=== PATIENT | male | born 1965 | race Caucasian/White ===

== ENCOUNTER 2018-03-30 08:28 | Day surgery (SDC) | payer MEDICARE, MEDICAID ==
[2018-03-30] MEDS ORDERED: Lactated Ringers 1,000 ML IV SCH ×2 (09:15→11:30)
[2018-03-30] MEDS ORDERED: fentaNYL 100 MCG/2 ML SDV ONE (10:02)
[2018-03-30] MEDS ORDERED: Midazolam 1 MG/ML 2 ML SDV ONE (10:02)
[2018-03-30] MEDS ORDERED: Propofol 200 MG/20 ML SDV ONE (10:02)
--- NOTE | 2018-03-31 07:31 | OR ---
DATE OF PROCEDURE: 03/30/2018 PREOPERATIVE DIAGNOSIS: Blood in stool. POSTOPERATIVE DIAGNOSIS: Blood in stool, etiology unknown, poor colonoscopy prep. PROCEDURE: Attempted colonoscopy, unsuccessful, only to about 30 cm secondary to large amount of formed stool. SURGEON: Chet Dominguez MD ANESTHESIA: IV anesthesia with monitored anesthesia care. INDICATION: This 53-year-old white male is referred for a colonoscopy. He has never had a colonoscopic exam. He has a positive FIT test. I counseled him for the procedure, including risks and alternatives, and he gave his informed consent to proceed. PROCEDURE DETAILS: The patient was placed in the left lateral decubitus position. IV anesthesia was administered by the Anesthesia Service. Time-out was held. A rectal exam was performed, which was unremarkable except we encountered a lot of stool. The flexible video Olympus colonoscope was introduced through his anus, up his rectum, out his colon. We had to course along the wall staying away from a great deal of stool. We only got to about 30 cm, when we ran into a wall of stool, which precluded going any further. The scope was then slowly withdrawn, examining the visualized mucosa, which appeared unremarkable. The scope was removed. He tolerated the procedure well. We will see if we can do a couple more days of prep and then repeat the attempt in two days. Chet Dominguez MD /[id number]
== END 2018-03-30 11:35 | disposition home or self-care (01) ==
LOC: JP.SDS 08:28
PROVIDERS: ATTEND Surgery
DX: K92.1 Melena (principal); E11.9 Type 2 diabetes mellitus without complications
CPT/HCPCS: 45330; J2250; J2704; J3010; J7120

== ENCOUNTER 2018-04-01 06:22 | Day surgery (SDC) | payer MEDICARE, MEDICAID ==
[2018-04-01] MEDS: Lactated Ringers 1,000 ML IV SCH (06:44)
[2018-04-01] MEDS ORDERED: Propofol 200 MG/20 ML SDV ONE ×2 (07:19→08:01)
[2018-04-01] MEDS ORDERED: fentaNYL 100 MCG/2 ML SDV ONE (07:19)
[2018-04-01] MEDS ORDERED: Midazolam 1 MG/ML 2 ML SDV ONE (07:20)
--- NOTE | 2018-04-01 09:05 | OR ---
DATE OF PROCEDURE: 04/01/2018 PREOPERATIVE DIAGNOSIS: Positive FIT test. POSTOPERATIVE DIAGNOSIS: Positive FIT test, etiology unknown. PROCEDURE: Colonoscopy to the cecum. SURGEON: Chet Dominguez MD ANESTHESIA: IV anesthesia with monitored anesthesia care. INDICATION: This 53-year-old white male is here for a colonoscopy. We attempted to do a colonoscopy two days ago, but the prep was very poor, and it was impossible to do the procedure. He has been re-prepped. We are doing this because he has a positive FIT test. I counseled him for the procedure including risks and alternatives, and he gave his informed consent to proceed. DESCRIPTION OF PROCEDURE: The patient was placed in the left lateral decubitus position. IV anesthesia was administered by the Anesthesia Service. Time-out was held. A rectal exam was performed, which was unremarkable. The flexible video Olympus colonoscope was introduced through his anus, up his rectum and out his colon, all the way to the cecum. There was a great deal of stool lining the mucosa of the colon. We washed and aspirated much of this free. Once the cecum was reached, the scope was slowly withdrawn, examining the mucosa throughout. No mucosal abnormalities were noted. The scope was retroflexed in the rectum with the distal rectum appearing unremarkable. The scope was straightened and removed. He tolerated the procedure well. Chet Dominguez MD /[id number]
== END 2018-04-01 09:35 | disposition home or self-care (01) ==
LOC: JP.SDS 06:22
PROVIDERS: ATTEND Surgery
DX: R19.5 Other fecal abnormalities (principal); E11.9 Type 2 diabetes mellitus without complications
CPT/HCPCS: 45378; 82962; J2250; J2704; J3010; J7120

== ENCOUNTER 2023-02-06 15:01 | Emergency (ER) | payer MEDICAID, MEDICARE ==
[2023-02-06] MEDS ORDERED: Sodium Chloride 0.9% 1,000 ML IV SCH ×2 (16:00→17:30)
[2023-02-06 16:12] LABS: BASOPHILS ABSOLUTE AUTO 0.04 K/uL (0.00-0.10); BASOPHILS PERCENT AUTO 0.3 % (0.1-1.3); BICARBONATE,ARTERIAL 21.1 mmol/L (22.0-26.0); CARBOXYHEMOGLOBIN 2.3 % (0.0-1.6); EOSINOPHILS ABSOLUTE AUTO 0.04 K/uL (0.00-0.40); EOSINOPHILS PERCENT AUTO 0.3 % (0.0-5.4); HEMATOCRIT 43.6 % (38.4-49.7); IMMATURE GRAN ABSOLUTE AUTO 0.09 K/uL (0.00-0.23); IMMATURE GRAN PERCENT AUTO 0.7 % (0.0-0.7); LYMPHOCYTES PERCENT AUTO 17.1 % (11.4-47.7); MEAN CORPUSCULAR HEMOGLOBIN 32.1 pg (31.6-35.5); MEAN CORPUSCULAR HGB CONC 36.7 g/dL (31.6-35.5); MEAN CORPUSCULAR VOLUME 87.4 fL (81.4-99.0); METHEMOGLOBIN 0.6 %; MONOCYTES ABSOLUTE AUTO 0.97 K/uL (0.20-0.90); MONOCYTES PERCENT AUTO 7.5 % (3.3-12.6); NEUTROPHILS ABSOLUTE AUTO 9.54 K/uL (1.0-7.6); NEUTROPHILS PERCENT AUTO 74.1 % (40.0-78.1); O2 SATURATION ARTERIAL 88.6 % (95.0-98.0); PCO2 ARTERIAL 23.8 mmHg (35.0-42.0); PLATELET COUNT,PLT 193 K/uL (130-375); PO2 ARTERIAL 53.9 mmHg (75.0-100.0); RED BLOOD CELL COUNT 4.99 M/uL (4.14-5.76); TOTAL HEMOGLOBIN 16.5 g/dL (13.5-18.0); WHITE BLOOD CELL COUNT,WBC 12.9 K/uL (3.2-11.0)
[2023-02-06 16:29] LABS: ALANINE AMINOTRANSFERASE,ALT 45 U/L (12-78); ALBUMIN 3.4 g/dL (3.4-5.0); ALKALINE PHOSPHATASE 76 U/L (46-116); ANION GAP 18.3 mmol/L (5.0-14.0); ASPARTATE AMNIOTRANSFERASE,AST 33 U/L (15-37); BILIRUBIN TOTAL 1.4 mg/dL (0.2-1.0); BLOOD UREA NITROGEN,BUN 29 mg/dL (7-18); CARBON DIOXIDE,CO2 22 mmol/L (21-32); CHLORIDE,CL 96 mmol/L (100-108); CREATININE 1.5 mg/dL (0.8-1.3); EST CRCL DRUG DOSING (CG) 56.48 mL/min; ESTIMATED GFR 53 mL/min (>60); GLUCOSE RANDOM 218 mg/dL (74-106); POTASSIUM,K 3.3 mmol/L (3.6-5.2); PROTEIN TOTAL,TP 6.9 g/dL (6.4-8.2); SODIUM,NA 133 mmol/L (140-148)
== END 2023-02-06 18:29 | disposition home or self-care (01) ==
LOC: JP.ED 15:01
DX: E86.0 Dehydration (principal); Z79.4 Long term (current) use of insulin; Z79.82 Long term (current) use of aspirin; E10.10 Type 1 diabetes mellitus with ketoacidosis without coma; Z79.899 Other long term (current) drug therapy
CPT/HCPCS: 36415; 36600; 80053; 82009; 82803; 85025; 96360; 96361; 99285; J7030